=== PATIENT | male | born 1980 | race Caucasian/White ===

== ENCOUNTER 2020-05-08 07:29 | Emergency (ER) | payer SELFPAY ==
--- NOTE | ~2020-05-08 | XR_ITS ---
EXAMINATION: XR_CERV2-3V_CR DATE: 05/08/2020 09:09 INDICATION: Neck pain. TECHNIQUE: 3 views of cervical spine were obtained. COMPARISON: None. FINDINGS: There is 2 mm retrolisthesis of C5 on C6. There is 4 degrees levocurvature of cervicothorac ic spine. Vertebral body heights are normal. There is mildly decreased disc height at C4-C5 and moder ately decreased disc height at C5-C6. At C5-C6, there is moderate bilateral uncovertebral joint osteo arthritis. There is mild facet joint osteoarthritis in lower cervical spine. There is mild central ca nal stenosis at C5-C6. No prevertebral soft tissue swelling. IMPRESSION: 1. Mild cervical spondylosis. Reviewed, dictated and finalized at location A.
--- NOTE | ~2020-05-08 | XR_ITS ---
EXAMINATION: XR shoulder RT min 2V INDICATION: Right shoulder pain TECHNIQUE: Four views of the right shoulder are submitted. COMPARISON: None FINDINGS: Normal alignment. No fracture. Glenohumeral and acromioclavicular joint spaces are normal. Soft tissues are unremarkable. IMPRESSION: 1. No acute osseous abnormality. Reviewed, dictated and finalized at location A.
[2020-05-08 08:04] VITALS: BP 134/96; PULSE 87; RESP 16; TEMP 37.1; O2SAT 100
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
[2020-05-08] MEDS: DIAZEPAM 5 MG TABLET PO (09:15)
[2020-05-08 09:55] VITALS: BP 118/75; PULSE 78; RESP 16; O2SAT 100
[2020-05-08 10:41] VITALS: BP 124/68; PULSE 72; RESP 16; O2SAT 100
== END 2020-05-08 10:41 | disposition home or self-care (01) ==
PROVIDERS: Emergency Provider Emergency Medicine; PCP Family Medicine
DX: M25.512 Pain in left shoulder (principal); M54.2 Cervicalgia; M47.812 Spondylosis without myelopathy or radiculopathy, cervical region; V18.4XXA Pedal cycle driver injured in noncollision transport accident in traffic accident, initial encounter; Y93.55 Activity, bike riding
CPT/HCPCS: 72040; 73030; 99284; A9270

== ENCOUNTER 2020-08-07 15:23 | Emergency (ER) | payer SELFPAY ==
--- NOTE | ~2020-08-07 | XR_ITS ---
EXAMINATION: XR foot LT min 3V DATE: 08/07/2020 20:24 INDICATION: Left foot edema and erythema. TECHNIQUE: 4 views of left foot were obtained. COMPARISON: None. FINDINGS: Bone alignment is normal. No fracture. Joint spaces are well maintained. IMPRESSION: 1. Normal left foot. Reviewed, dictated and finalized at location A. IMPRESSION: 1. Normal left foot.
[2020-08-07 15:55] VITALS: BP 138/85; PULSE 110; RESP 20; TEMP 36.7; O2SAT 100
[2020-08-07 19:19] VITALS: BP 133/86; PULSE 103; RESP 17; O2SAT 100
[2020-08-07 20:58] LABS: Basophils Percent Auto 0.3 % (0.2-1.2); Eosinophils Absolute Auto 0.3 K/mm3 (0-0.3); Eosinophils Percent Auto 2.9 % (0-4.4); Hematocrit 50.2 % (42.0-52.0); Hemoglobin 17.3 g/dL (14.0-18.0); Immature Granulocyte Absolute 0.07 K/mm3 (0.00-0.031); Immature Granulocyte Percent A 0.6 % (0-0.5); Lymphocytes Absolute Auto 2.63 K/mm3 (0.9-3.2); Lymphocytes Percent Auto 24.2 % (18.3-44.2); Mean Corpuscular HGB Conc 34.5 g/dl (32-36); Mean Corpuscular Hemoglobin 30.4 pg (26-34); Mean Corpuscular Volume 88.1 fl (80-100); Mean Platelet Volume 8.5 fl (7.4-10.4); Monocytes Absolute Auto 0.9 K/mm3 (0.1-0.6); Monocytes Percent Auto 8.1 % (2.6-8.5); Neutrophils Percent Auto 63.9 % (45.5-73.1); Platelet Count Result 298 k/mm3 (150-375); Red Cell Distribution Width 13.1 % (11.5-14.5); White Blood Count 10.9 K/mm3 (4.5-10.0)
--- NOTE | 2020-08-07 21:14 | ED.WOUNDLAC ---
HPI - Wound/Laceration General Chief Complaint: Wound/Laceration Stated Complaint: swelling foot/insect bite Time Seen by Provider: 08/07/20 19:57 Source: patient Mode of arrival: ambulatory Limitations: no limitations History of Present Illness HPI narrative: This is a 40 year old male that presents to the ER for left foot swelling and pain. Reports he was stung by an insect yesterday around his ankle. Reports since he has had increasing swelling of the left foot. Also reports redness. He has not taken anything for his symptoms. Denies decreased ROM or numbness. Related Data Allergies Allergy/AdvReac Type Severity Reaction Status Date / Time Penicillins Allergy Intermediate RASH Verified 05/18/19 20:24 clindamycin Allergy Mild RASH Verified 05/18/19 20:24 Review of Systems Review of Systems: Narrative: CONSTITUTIONAL: Denies fever SKIN: Reports erythema and edema MUSCULOSKELETAL: Reports joint pain, and myalgia. NEUROLOGIC: Denies numbness All systems reviewed & are unremarkable except as noted in HPI and below PMFSH Surgical History Surgical History (Updated 05/08/20 @ 08:55 by Blaire Villatoro MD) Hx of decompression of ulnar nerve Social History Social History (Updated 08/07/20 @ 21:17 by Shanti Gallego PA-C) Smoking status: Never smoker Alcohol intake: current Substance use: current Substance use type: marijuana and methamphetamine Gender identity (if verbalized by the patient): Male Exam Narrative: Exam Narrative: GENERAL: Well-appearing, well-nourished, and in no acute distress. HEAD: Normocephalic, atraumatic. EYES: EOMI. CHEST: Clear to auscultation. No respiratory distress. No wheezes rales or rhonchi HEART: Regular rate and rhythm. No murmur heard. Normal peripheral pulses. EXTREMITIES: Normal range of motion. Moderate edema with mild redness to the left foot dorsal surface extending into the ankle. Normal DP pulses. Normal sensation SKIN: Warm, dry, no rash. NEURO: No focal deficits. Alert and oriented x3. PSYCH: Normal mood and affect Course Vital Signs Vital signs: Vital Signs Temperature 98.0 F 08/07/20 15:55 Pulse Rate 110 H 08/07/20 15:55 Respiratory Rate 20 08/07/20 15:55 Blood Pressure 138/85 09/14/20 15:55 Pulse Oximetry 100 08/07/20 15:55 Temperature 98.0 F 08/07/20 15:55 Pulse Rate 98 08/07/20 21:39 Respiratory Rate 17 08/07/20 21:39 Blood Pressure 132/90 08/07/20 21:39 Pulse Oximetry 99 08/07/20 21:39 MDM - Wound/Laceration MDM Narrative Medical decision making narrative: Patient presents the emergency department for left foot swelling after an insect sting yesterday. He is afebrile and nontoxic-appearing. CBC with mild leukocytosis to 10.9. No concerning elevation in inflammatory markers. D-dimer is not elevated. Left foot x-ray is without acute findings. Patient reports some improvement with antihistamines and steroid. Patient will be instructed on antihistamines at home. He will also be started on oral antibiotics in case this is bacterially infected. Patient is stable and felt appropriate further outpatient evaluation. He was given warnings to return to the ER Lab Data Attestation: I reviewed the patient's lab results. Result diagrams: 08/07/20 20:51 08/07/20 20:51 Labs: Lab Results 08/07/20 08/07/20 08/07/20 Range/Units 20:51 20:51 20:51 WBC 10.9 H (4.5-10.0) K/mm3 RBC 5.70 (4.6-6.20) M/mm3 Hgb 17.3 (14.0-18.0) g/dL Hct 50.2 (42.0-52.0) % MCV 88.1 (80-100) fl MCH 30.4 (26-34) pg MCHC 34.5 (32-36) g/dl RDW 13.1 (11.5-14.5) % Plt Count 298 (150-375) k/mm3 MPV 8.5 (7.4-10.4) fl Immature Gran % (Auto) 0.6 H (0-0.5) % Neut % (Auto) 63.9 (45.5-73.1) % Lymph % (Auto) 24.2 (18.3-44.2) % [place] % (Auto) 8.1 (2.6-8.5) % Eos % (Auto) 2.9 (0-4.4) % Baso % (Auto) 0.3 (0.2-1.2) % Lymph # (Auto) 2.63 (0.9-3.2) K/mm3 M
[2020-08-07 21:16] LABS: Anion Gap 8 mmol/L (8-16); Blood Urea Nitrogen 26 mg/dL (9-20); CRP 1.7 mg/dL (<1.0); Calcium 9.8 mg/dL (8.4-10.2); Carbon Dioxide 34 mmol/L (22-30); Chloride 95 mmol/L (98-107); Estimated CRCL calculation 69 ml/min; Estimated Glomerular Filt Rate > 60; Glucose 87 mg/dL (75-110); Potassium 4.1 mmol/L (3.4-5.0); Sodium 137 mmol/L (137-145)
[2020-08-07 21:31] LABS: Erythrocyte Sedimentation Rate 6 mm/hr (0-20)
[2020-08-07 21:39] VITALS: BP 132/90; PULSE 98; RESP 17; O2SAT 99
[2020-08-07] MEDS: methylPREDNISolone SOD SUCC 125 MG VIAL IM (21:40)
[2020-08-07] MEDS: FAMOTIDINE 20 MG TABLET PO (21:40)
[2020-08-07] MEDS: diphenhydrAMINE HCl CAP 25 MG CAPSULE PO (21:40)
[2020-08-07] MEDS: KETOROLAC 30 MG/ML VIAL (*BKC) IV PUSH (21:41)
[2020-08-07 21:46] LABS: INR 1.1; Prothrombin Time 13.6 Seconds (11.1-14.7)
[2020-08-07 21:47] LABS: Partial Thromboplastin Time 29.7 SECONDS (22.3-36.8)
[2020-08-07 22:11] LABS: D Dimer 0.43 ug/mL (<0.48)
== END 2020-08-07 22:44 | disposition home or self-care (01) ==
PROVIDERS: Physician Assistant; Emergency Provider Emergency Medicine
DX: L03.116 Cellulitis of left lower limb (principal); T63.481A Toxic effect of venom of other arthropod, accidental (unintentional), initial encounter
CPT/HCPCS: 36415; 73630; 80048; 85025; 85380; 85610; 85652; 85730; 86140; 96372; 96374; 99284; A9270; J1885; J2930

== ENCOUNTER 2020-08-29 13:38 | Emergency (ER) | payer SELFPAY ==
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
[2020-08-29 13:53] VITALS: BP 124/99; PULSE 115; RESP 18; TEMP 37.1; O2SAT 99
== END 2020-08-29 14:35 | disposition home or self-care (01) ==
PROVIDERS: Emergency Provider Emergency Medicine
DX: S63.501A Unspecified sprain of right wrist, initial encounter (principal); V89.2XXA Person injured in unspecified motor-vehicle accident, traffic, initial encounter
CPT/HCPCS: 73110; 73140; 99283

== ENCOUNTER 2020-09-06 16:04 | Emergency (ER) | payer OTHER, SELFPAY ==
--- NOTE | ~2020-09-06 | CT_ITS ---
EXAMINATION: CT brain wo con EXAM DATE: 09/06/2020 17:08 INDICATION: Headache, neck pain, laceration above left eye. TECHNIQUE: Spiral CT of the head was performed without contrast. Axial, coronal and sagittal images were reviewed. The dose-length product (DLP) for this examination was 605.33 mGy-cm. The exposure w as tailored according to patient size, and iterative reconstruction (ASIR) was used as additional dos e reduction technique. Comparison is made to prior examination from 05/18/19. FINDINGS: There is no acute intraparenchymal hemorrhage. No evidence of intraparenchymal brain mass lesion. No evidence of acute infarction. There is no mass effect or midline shift. The ventricles are normal in size. There are no extra-axial collections. There are no acute calvarial fractures. T he orbits are unremarkable. Left brow soft tissue contusion and laceration. The visualized sinuses a nd mastoid air cells are well aerated. IMPRESSION: 1. No acute intracranial findings. 2. Left brow contusion, laceration. Reviewed, dictated and finalized at location A.
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
[2020-09-06 16:04] VITALS: BP 156/79; PULSE 125; RESP 20; TEMP 37; O2SAT 99
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
== END 2020-09-06 18:23 ==
PROVIDERS: Emergency Provider Emergency Medicine
DX: S00.12XA Contusion of left eyelid and periocular area, initial encounter (principal); S00.81XA Abrasion of other part of head, initial encounter; Y35.813A Legal intervention involving manhandling, suspect injured, initial encounter
CPT/HCPCS: 70450; 70486; 72125; 99284; L0140

== ENCOUNTER 2021-09-14 10:47 | Emergency (ER) | payer SELFPAY ==
[2021-09-14 10:53] VITALS: BP 127/92; PULSE 97; RESP 14; TEMP 36.6; O2SAT 98
[2021-09-14] MEDS: LIDOCAINE HCL 1% LOCAL INJ 20 ML VIAL 4 ML INFILTRATE (11:08)
--- NOTE | 2021-09-14 11:26 | ED.GENADULT ---
HPI - General Adult General Chief complaint: Wound/Laceration Stated complaint: cut finger Source: patient Mode of arrival: ambulatory Limitations: no limitations History of Present Illness HPI narrative: Marko is a 41M with no significant PMH that presented to the ED with a laceration on his right index finger 9 hours ago. He was throwing a beer can like a football and cut it. He has no other injuries or concerns. Related Data Home Medications Medication Instructions Recorded Confirmed No Home Medications 08/29/20 09/14/21 Allergies Allergy/AdvReac Type Severity Reaction Status Date / Time Penicillins Allergy Intermediate RASH Verified 09/14/21 11:00 clindamycin Allergy Mild RASH Verified 09/14/21 11:00 Review of Systems Constitutional: Constitutional: Reports no additional constitutional complaints Eyes: Eyes: Reports no additional eye complaints ENT: Reports system reviewed and no additional complaints, except as documented Cardiovascular: Cardiovascular: Reports no additional cardiovascular complaints Respiratory: Respiratory: Reports no additional respiratory complaints Gastrointestinal: Gastrointestinal: Reports no additional gastrointestinal complaints Genitourinary: Genitourinary: Reports no additional male genitourinary complaints Musculoskeletal: Musculoskeletal: Reports no additional musculoskeletal complaints Integumentary/Breasts: Skin/Breast: Reports as per HPI Neurologic: Reports system reviewed and no additional complaints, except as documented Psychiatric: Psychiatric: Reports no additional psychiatric complaints Endocrine: Endocrine: Reports no additional endocrine complaints Hematologic/Lymphatic: Hematologic/Lymphatic: Reports no additional hematologic/lymphatic complaints Allergic/Immunologic: Allergic/Immunologic: Reports no additional allergic/immunologic complaints [facility] Surgical History Surgical History Hx of decompression of ulnar nerve Social History Social History Smoking status: Never smoker Alcohol intake: current Substance use: current Substance use type: marijuana and methamphetamine Gender identity (if verbalized by the patient): Male Exam Const: General: no acute distress and alert Orientation/consciousness: patient oriented x3 Limitations: No altered mental status HENMT: Head: normal to inspection Other: normocephalic, atrauamtic Eyes: Conjunctivae: conjunctivae normal Pupils: Equal, round and reactive pupils present Neck: Neck: normal visual inspection Chest: Chest palpation & inspection: normal inspection of the chest Resp: Effort & Inspection: normal respiratory effort, not labored, no retractions and not tachypneic Cardio: Rate: regular rate Skin: Other: the pad of the index finger on the right hand had a linear 1.5cm shallow laceration that was hemostatic Neuro: General: patient oriented x3 and moves all extremities Course Vital Signs Vital signs: Vital Signs Temperature 97.9 F 09/14/21 10:53 Pulse Rate 97 09/14/21 10:53 Respiratory Rate 14 09/14/21 10:53 Blood Pressure 127/92 H 09/14/21 10:53 Pulse Oximetry 98 09/14/21 10:53 Temperature 97.9 F 09/14/21 10:53 Pulse Rate 97 09/14/21 10:53 Respiratory Rate 14 09/14/21 10:53 Blood Pressure 127/92 H 09/14/21 10:53 Pulse Oximetry 98 09/14/21 10:53 Procedures Laceration Laceration 1: Date: 09/14/21 Site: other (R index finger) Size (cm): 1.5 Description: linear Depth: simple, single layer Local Anesthetic: lidocaine 1% Pre-repair: wound explored and irrigated ====== Skin Level ====== Skin layer closed with: nylon Size (cm): 4-0 Number of sutures: 5 ====== Subcutaneous Layer ====== ====== Muscle Layer ====== ====== Tendon Layer =====
== END 2021-09-14 11:32 | disposition home or self-care (01) ==
PROVIDERS: Emergency Provider Family Medicine
DX: S61.210A Laceration without foreign body of right index finger without damage to nail, initial encounter (principal); W45.8XXA Other foreign body or object entering through skin, initial encounter
CPT/HCPCS: 12001; 99282

== ENCOUNTER 2022-07-29 20:07 | Emergency (ER) | payer SELFPAY ==
[2022-07-29 20:09] VITALS: BP 144/91; PULSE 88; RESP 18; TEMP 36.3; O2SAT 99
--- NOTE | 2022-07-29 20:17 | ED.GENADULT ---
HPI - General Adult General Chief complaint: Skin/Abscess/Foreign Body Stated complaint: skin infection abdomen History of Present Illness HPI narrative: Alex presented to the ED with 6 days of an enlarging boil and surrounding erythema that is getting worse. No fevers, chills, N/v or SOB reported. He is allergic to clindamycin and penicillin. Related Data Allergies Allergy/AdvReac Type Severity Reaction Status Date / Time Penicillins Allergy Intermediate RASH Verified 07/29/22 20:15 clindamycin Allergy Mild RASH Verified 07/29/22 20:15 Review of Systems Review of Systems: All systems reviewed & are unremarkable except as noted in HPI and below PMFSH Surgical History Surgical History Hx of decompression of ulnar nerve Social History Social History Smoking status: Never smoker Alcohol intake: current Substance use: current Substance use type: marijuana and methamphetamine Gender identity (if verbalized by the patient): Male Exam Const: General: healthy appearing and no acute distress Nutritional Appearance: well nourished Orientation/consciousness: patient oriented x3 HENMT: Head: normal to inspection Ears: external ears normal General nose exam: Normal external nose present Eyes: Conjunctivae: conjunctivae normal Pupils: Equal, round and reactive pupils present Neck: Neck: normal visual inspection Chest: Chest palpation & inspection: normal inspection of the chest Resp: Effort & Inspection: normal respiratory effort Cardio: Rate: regular rate Skin: Other: On the lower abdomen there was a several cm round are of erythema with a boil and fluctuance Neuro: General: patient oriented x3 and moves all extremities Extrem: General: normal to inspection Psych: Mental Status: mental status grossly normal Course Vital Signs Vital signs: Vital Signs Temperature 97.3 F L 07/29/22 20:09 Pulse Rate 88 07/29/22 20:09 Respiratory Rate 18 07/29/22 20:09 Blood Pressure 144/91 H 07/29/22 20:09 Pulse Oximetry 99 07/29/22 20:09 Oxygen Delivery Room Air 07/29/22 20:09 Temperature 97.3 F L 07/29/22 20:09 Pulse Rate 88 07/29/22 20:09 Respiratory Rate 18 07/29/22 20:09 Blood Pressure 144/91 H 07/29/22 20:09 Pulse Oximetry 99 07/29/22 20:09 Oxygen Delivery Room Air 07/29/22 20:09 Procedures Abscess I/D abdomen: Date of Incision: 07/29/22 Time of Incision: 20:30 Sedation/analgesia: none Local Anesthetic: lidocaine 1% and with epi Amount of anesthesia used (mL): 1 Technique: incised with #11 blade Amount of fluid expressed (mL): 1 I&D Results: Pus Abcess I&D Additional Comments: Tolerated procedure well Medical Decision Making Vital Signs Vital Signs: Vital Signs Temperature 97.3 F L 07/29/22 20:09 Pulse Rate 88 07/29/22 20:09 Respiratory Rate 18 07/29/22 20:09 Blood Pressure 144/91 H 07/29/22 20:09 Pulse Oximetry 99 07/29/22 20:09 Oxygen Delivery Room Air 07/29/22 20:09 Temperature 97.3 F L 07/29/22 20:09 Pulse Rate 88 07/29/22 20:09 Respiratory Rate 18 07/29/22 20:09 Blood Pressure 144/91 H 07/29/22 20:09 Pulse Oximetry 99 07/29/22 20:09 Oxygen Delivery Room Air 07/29/22 20:09 Discharge Plan Discharge Clinical Impression: Cellulitis, Abscess Patient Disposition: Home, Self-Care Condition: Stable Instructions: Abscess (ED) Prescriptions: New sulfamethoxazole-trimethoprim [Bactrim DS] 800-160 mg tablet 1 tablet PO Q12H Qty: 10 0RF Follow-up/Referrals: UNKNOWN,DOCTOR [Primary Care Provider] -
[2022-07-29] MEDS: SULFAMETHOXAZOLE/TRIMETHOPRIM 800/160 MG DS TABLET 2 TAB PO (20:36)
[2022-07-29] MEDS: LIDO 1%/EPINEPHRINE 1:100,000 20 ML VIAL INFILTRATE (20:38)
== END 2022-07-29 20:45 | disposition home or self-care (01) ==
PROVIDERS: Emergency Provider Family Medicine
DX: L02.91 Cutaneous abscess, unspecified (principal)
CPT/HCPCS: 10060; 99283; A9270

== ENCOUNTER 2022-11-09 11:40 | Emergency (ER) | payer SELFPAY ==
[2022-11-09 11:41] VITALS: BP 135/84; PULSE 78; RESP 16; TEMP 36.4; O2SAT 100
--- NOTE | 2022-11-09 13:01 | ED.SKABFB ---
HPI - Skin/Abscess/Foreign Bdy General Chief complaint: Skin/Abscess/Foreign Body Stated complaint: abscess on abdomen Time Seen by Provider: 11/09/22 13:00 History of Present Illness HPI narrative: Patient is a 42-year-old male presenting with skin infection. Patient states that he recently got a new climbing belt which has been riding high and rubbing on his abdomen. States that he noticed a little red bump several days ago and he picked out it and since then it has grown. States that there is another area of redness just to the left of the first one. States he is concerned for abscesses. He denies fevers, headache, chest pain, shortness of breath, abdominal pain, nausea or vomiting, diarrhea. Related Data Allergies Allergy/AdvReac Type Severity Reaction Status Date / Time Penicillins Allergy Intermediate RASH Verified 11/09/22 11:40 clindamycin Allergy Mild RASH Verified 11/09/22 11:40 Review of Systems Review of Systems: All systems reviewed & are unremarkable except as noted in HPI and below PMFSH Surgical History Surgical History Hx of decompression of ulnar nerve Social History Social History Smoking status: Never smoker Alcohol intake: current Substance use: current Substance use type: marijuana and methamphetamine Gender identity (if verbalized by the patient): Male Exam Narrative: GENERAL: Well-appearing, well-nourished, and in no acute distress. HEAD: Normocephalic, atraumatic. EYES: PERRLA and EOMI. ENT: Nares clear, no rhinorrhea or epistaxis. Mucous membranes moist. NECK: Supple. CHEST: Clear to auscultation. No respiratory distress. HEART: Regular rate and rhythm. No murmur heard. Normal peripheral pulses. ABDOMEN: Soft, nontender, nondistended, 2 areas of erythema with evidence of superficial purulent collection, consistent with folliculitis, areas are indurated but there is no surrounding cellulitis, no deep fluctuance EXTREMITIES: Normal range of motion. No edema. SKIN: Warm, dry, no rash. NEURO: No focal deficits. Alert and oriented x3. PSYCH: Normal mood and affect. Course Vital Signs Vital signs: Vital Signs Temperature 97.6 F 11/09/22 11:41 Pulse Rate 78 11/09/22 11:41 Respiratory Rate 16 11/09/22 11:41 Blood Pressure 135/84 11/09/22 11:41 Pulse Oximetry 100 11/09/22 11:41 Oxygen Delivery Room Air 11/09/22 11:41 Temperature 97.6 F 11/09/22 11:41 Pulse Rate 78 11/09/22 11:41 Respiratory Rate 16 11/09/22 11:41 Blood Pressure 135/84 11/09/22 11:41 Pulse Oximetry 100 11/09/22 11:41 Oxygen Delivery Room Air 11/09/22 11:41 Procedures Abscess I/D abdomen: Date of Incision: 11/09/22 Local Anesthetic: lidocaine 1% Amount of anesthesia used (mL): 8 Technique: incised with #11 blade Amount of fluid expressed (mL): 5 Irrigation: Yes Packing used?: none I&D Results: Pus and Blood Abcess I&D Additional Comments: two small abscesses incised and drained on anterior abdomen, moderate amount of purulent material drained, tolerated well without complications. MDM - Skin/Abscess/Foreign Bdy MDM Narrative Medical decision making narrative: Patient is a 42-year-old male presenting with 2 superficial abscesses on his anterior abdomen. Vitals within normal limits. Patient is well-appearing and in no acute distress. Warm compresses applied with some drainage of being superficial purulence. Suspect there is deeper fluid collection at this time so I&D was performed on both abscesses with drainage of moderate amount of purulence. We will cover the patient with Bactrim. Advised that he continue to apply warm compresses. Advise primary care follow-up. Appropriate return precautions were given regarding worsening of symptoms, development of fever or systemic symptoms, or other concer
== END 2022-11-09 15:19 | disposition home or self-care (01) ==
PROVIDERS: Emergency Provider Emergency Medicine
DX: L02.211 Cutaneous abscess of abdominal wall (principal)
CPT/HCPCS: 10060; 99283

== ENCOUNTER 2022-11-11 12:52 | Emergency (ER) | payer SELFPAY ==
[2022-11-11 13:06] VITALS: PULSE 88; RESP 18; TEMP 36.7; O2SAT 98
--- NOTE | 2022-11-11 13:10 | ED.SKABFB ---
HPI - Skin/Abscess/Foreign Bdy General Chief complaint: Skin/Abscess/Foreign Body Stated complaint: allergic reaction? Time Seen by Provider: 11/11/22 12:59 Source: patient and RN notes reviewed Mode of arrival: ambulatory Limitations: no limitations History of Present Illness HPI narrative: patient had 2 abscesses on his abdomen lacerated at another facility. He then was started on a sulfa antibiotic and then last evening he began having some itching around his rectum up to his scrotum. complaint: rash Onset (ago): day(s) (1) Location: genitals Severity: moderate Quality: burning and pruritic Pain Consistency: constant Relieving factors: none Exacerbating factors: none Context: recent antibiotic Associated symptoms: denies other symptoms Treatments prior to arrival: none Related Data Allergies Allergy/AdvReac Type Severity Reaction Status Date / Time Penicillins Allergy Intermediate RASH Verified 11/11/22 13:17 clindamycin Allergy Mild RASH Verified 11/11/22 13:17 Review of Systems Review of Systems: All systems reviewed & are unremarkable except as noted in HPI and below PMFSH Surgical History Surgical History Hx of decompression of ulnar nerve Social History Social History Smoking status: Never smoker Alcohol intake: current Substance use: current Substance use type: marijuana and methamphetamine Gender identity (if verbalized by the patient): Male Exam Const: General: healthy appearing, no acute distress and alert Nutritional Appearance: well nourished Orientation/consciousness: patient oriented x3 Limitations: no limitations HENMT: Head: normal to inspection Ears: external ears normal Face/Nose/Sinus: Normal external nose present Face and sinus: normal facial exam Mouth: Yes moist mucous membranes Eyes: Conjunctivae: conjunctivae normal Pupils: Equal, round and reactive pupils present EOM: EOMs intact bilaterally Neck: Neck: normal visual inspection Resp: Effort & Inspection: normal respiratory effort Auscultation: clear to auscultation bilaterally Cardio: Rate: regular rate Rhythm: regular rhythm GI: Auscultation: normal bowel sounds Back/Spine/Pelvis: Cervical Spine: cervical ROM normal Thoracic/Lumbar Spine: thoraco-lumbar ROM normal Skin: General skin exam: normal color Rashes: rashes noted yesenia-anal arrangement confluent, borders sharp, color, surface blanching and erythematous and tender Neuro: General: patient oriented x3, moves all extremities, no focal motor deficits and CN's II-XI intact bilaterally Speech: normal speech Gait exam (Neuro): Normal gait present Extrem: General: normal to inspection and no clubbing, cyanosis or edema Psych: Mental Status: mental status grossly normal Affect: normal affect Attitude: cooperative Course Vital Signs Vital signs: Vital Signs Temperature 36.7 C 11/11/22 13:06 Pulse Rate 88 11/11/22 13:06 Respiratory Rate 18 11/11/22 13:06 Pulse Oximetry 98 11/11/22 13:06 Oxygen Delivery Room Air 11/11/22 13:06 Temperature 36.7 C 11/11/22 13:06 Pulse Rate 88 11/11/22 13:06 Respiratory Rate 18 11/11/22 13:06 Pulse Oximetry 98 11/11/22 13:06 Oxygen Delivery Room Air 11/11/22 13:06 MDM - Skin/Abscess/Foreign Bdy Differential Diagnosis Differential diagnosis: Likely urticaria, allergic reaction to drug and other ( Candidiasis) Discharge Plan Discharge Clinical Impression: Candidiasis Patient Disposition: Home, Self-Care Condition: Stable Instructions: Skin Yeast Infection (ED) Additional Instructions: can continue your current antibiotic and if your rash gets worse then you should stop the sulfa antibiotic. Use the nystatin cream 3 times a day. Other option is to discontinue your current antibiotic and just use the nystatin cream. Prescriptions: New nystatin 100,00
--- NOTE | 2022-11-11 13:29 | PC.NURSE ---
Pt has rash from rectum to scrotum.
== END 2022-11-11 13:52 | disposition home or self-care (01) ==
PROVIDERS: Emergency Provider Emergency Medicine
DX: B37.2 Candidiasis of skin and nail (principal)
CPT/HCPCS: 99283

== ENCOUNTER 2023-04-27 17:50 | Emergency (ER) | payer SELFPAY | END 2023-04-27 18:05 | disposition left against medical advice (07) | LOC: CHSED 04-28 13:55 | PROVIDERS: Emergency Provider Emergency Medicine; PCP Family Medicine | DX: Z53.21 Procedure and treatment not carried out due to patient leaving prior to being seen by health care provider (principal) | CPT/HCPCS: 99199 ==

== ENCOUNTER 2025-02-02 18:51 | Emergency (ER) | payer OTHER, SELFPAY ==
--- OUTSIDE RECORDS SUMMARY | 2025-02-02 18:52 | XMS_ITS | Continuity of Care Document ---
Author Organization [facility] Address [address] [place] [address] [address] [place] [address] Phone Care Team Providers Care Supervisor Cellars Name Role Phone Radames COOL, OTR/L, Jorden VARGAS Unavailable Micaela vailable Procedures Procedure Date ORTHOTIC FITTING OT EVALUATION THERAPEUTIC EXERCISES ORTHOTIC FITTING Non-compressive stockinette per foot Jan Static Clamshell Splint Advance Directives Directive Yes / No Effective Date File Name No Information Encounters Encounter Description Practice Location Reason(s) For Visit Diagnoses Date Provider Providers Copied on Encounter [facility], [address] [address], [place], [place], [id number], tel:[phone] [place] No Information 6 Radames Leonardo. [address] [facility], [facility] [address], [place], [facility], . tel:[phone] Referring Provider: Leif Mansfield, [address] [facility] [address], [place], [address]. tel:[phone] [facility], [address] [address], [place], [place], [id number], tel:[phone] [place] Pain in left handOther specified soft tissue disordersMuscle weakness (generalized)Uns pecified sprain of left wrist, initial encounterOther specified joint disorders, left wrist 6 Radames Leonardo. [address] [facility], [facility] [address], [place], [place], [facility], . tel:[phone] Referring Provider: Lionel Hirsch, [address] [facility] [address], [place], [address]. tel:[phone] Family History Family Member Type Diagnosis Age At Onset No Information Payers Payer name Insurance type Covered libertarian ID Authoriza tion(s) No Information Social History Type Description Quantity Date Captured Comments Sex Male Smoking Status No Information Chief Complaint And Reason For Visit No Information Reason For Referral Reason For Referral No Information History Of Present Illness Encounter Date Complaint History Of Prese nt Illness No Information Functional Status Date Functional Assessmen t No Information Instructions Date Instruction Additional Infor mation No Information Assessments Type Assessment Date No Information Patient Care Teams Name Effective Dates (start - stop) Status Members No Information
[2025-02-02 18:53] VITALS: BP 132/79; PULSE 92; RESP 18; TEMP 38.1; O2SAT 96
--- OUTSIDE RECORDS SUMMARY | 2025-02-02 18:53 | XMS_ITS | Data Portability ---
Author Organization [facility] YANELYKayden Maravilla Address [address] [facility] [place] [address] Assessment Encounter Date Assessment Date Assessment LastModified by Organization Details LastModified Time 09/27/2024 09/27/2024 Pt's case was discussed w/resident. Documentation was reviewed, and I agree w/resident's note. Dr. Waldron Not available 10/01/2024 14:22:46 Plan of Treatment Reminders Order Date Submit Date Provider Last Modified By Organization Details Last Modified Time Details Appointments None recorded. Lab urinalysis complete, reflex culture 2023 [facility] [address], [address], [place], [address], 4 06:20:46 RPR (rapid plasma reagin), serum 2023 024 [facility], [facility] [address], [place], [address], 4 06:20:49 HIV 1 + 2, meaningful use set 2023 [place] [facility], [facility] [address], [address], [place], [address], 4 06:20:50 chlamydia trachomati s + neisseria gonorrhoea e + trichomona s vaginalis rRNA panel, TYLER+probe 2023 024 [facility] K[facility], [address] [place] [address] [address], [address], [place], [address], 4 06:20:44 Hepatitis C IgG Ab, qual, serum 2023 024 [facility], [address] [address], [address], [place], [address], 4 06:20:43 HBsAg (hepatitis B surface Ag), EIA, serum 2023 024 [facility], [address] [place] [address], [address], [place], [address], 4 06:20:48 chlamydia trachomati s + neisseria gonorrhoea e rRNA panel, TYLER+probe, nasopharyn x 2023 024 [facility], [address] [place] [address], [address], [place], [address], 4 06:20:45 RPR (rapid plasma reagin), serum 2023 024 [facility], [address] [place] [address], [address], [place], [address], 4 06:07:44 chlamydia trachomati s + neisseria gonorrhoea e rRNA panel, TYLER+probe, nasopharyn x 2023 024 [facility], [address] [place] [address], [address], [place], [address], 4 06:07:40 chlamydia trachomati s + neisseria gonorrhoea e + trichomona s vaginalis DNA panel, TYLER+probe, urine 2023 024 [facility], [address] [place] [address], [address], [place], [address], 4 15:10:14 lipid panel, serum 2023 024 [place] [facility], [facility] [address], [address], [place], [address], 4 06:07:41 CBC w/ auto diff 2023 024 [facility], [facility] [place], [address], [place], [address], 4 06:07:43 CMP, serum or plasma 2023 024 [facility], [facility] [address], [address], [place], [address], 4 06:07:42 TSH + free T4, serum 2023 024 [facility], [address] [place] [address], [address], [place], [address], 4 06:07:41 vitamin D, 25-hydroxy , total, serum 2023 024 [facility], [facility] [place], [address], [place], [address], 4 06:07:44 vitamin B12, serum 2023 024 [facility], [address] [place] [address], [address], [place], [address], 4 06:07:43 Referral None recorded. Procedures None recorded. Surgeries None recorded. Imaging XR, elbow, 3 or more view - left elbow x ray 2023 024 [facility], [address] [place], [address], 4 10:24:42 Medication Orders metronidaz ole 500 mg tablet 2023 024 [id number], [address], [place], [place], [id number], 16:03:11 meloxicam 7.5 mg tablet 2023 024 [id number], [address], [place], [place], [id number], 15:04:25 Patient TargetsNo targets recorded. Patient Instructions Encounter Date Encounter Id Patient Instructions Last Modified By Organization Details Last Modified Time 03/25/2024 [id number] A healthy lifestyle: care instructions [email or web address] Not available 04/12/2024 10:46:35 golfer's elbow: exercises [email or web address] Not available 03/25/2024 17:02:12 golfer's elbow: care instructions [email or web address] Not available 03/25/2024 17:02:12 Plan of care has been discussed with patient including expected therapeutic benefits and potential side effects of prescribed medication and treatments. Patient verbalizes understanding and is in agreement with the plan of care. Patient was instructed to keep all scheduled appointments and contact the clinic for any additional problems. [email or web address] Not available 03/25/2024 17:07:48 09/27/2024 [id number] painful urinatio n (dysuria): care instructions [email or web address] Not available 09/27/2024 15:17:39 Reason for Referral None Reported. Results Created Date Observation Date Name Description Value Unit Range Abnormal Flag Note LastModifiedBy Organization Detail LastModifiedTime 03/25/2003/29/2024 CT/GC TYLER, PHARY NGEAL C. trachomatis, TYLER, pharyn Negati ve negati ve Not Available [facility] ([facility]) [address] [facility], [place], [address], 03/29/2024 06:07:40 03/25/2003/29/2024 CT/GC TYLER, PHARY NGEAL N. gonorrhoeae, TYLER, pharyn Negati ve negati ve Not Available [facility] ([facility]) [address] [place], [address], 03/29/2024 06:07:40 03/25/20 24 03/26/2024 TSH+F REE T4 TSH 2.210 uIU/m L 0.450- 4.500 Not Available [facility] ([facility]) [address] [place], [address], 03/29/2024 06:07:41 03/25/20 24 03/26/2024 TSH+F REE T4 T4,free(dire ct) 1.17 NG/dL 0.82-1 .77 Not Available [facility] ([facility]) [address] [place], [address], 03/29/2024 06:07:41 03/25/20 24 03/26/2024 LIPID PANEL cholesterol, total 185 mg/dL 100-19 9 Not Available [facility] ([facility]) [address] [place], [address], 03/29/2024 06:07:41 03/25/20 24 03/26/2024 LIPID PANEL triglyceride s 399 mg/dL 0-149 above high normal Not Available [facility] ([facility]) [address] [place], [address], 03/29/2024 06:07:41 03/25/20 24 03/26/2024 LIPID PANEL HDL cholesterol 33 mg/dL >39 below low normal Not Available [facility] ([facility]) [address] [place], [address], 03/29/2024 06:07:41 03/25/20 24 03/26/2024 LIPID PANEL VLDL cholesterol be 65 mg/dL 5-40 above high normal Not Available [facility] ([facility]) [address] [place], [address], 03/29/2024 06:07:41 03/25/20 24 03/26/2024 LIPID PANEL LDL chol calc ([facility]) 87 mg/dL 0-99 Not Available [facility] [address] [place], [address], 03/29/2024 06:07:41 03/25/20 24 03/26/2024 COMP. METAB OLIC PANEL (14) glucose 79 mg/dL 70-99 Not Available [facility] ([facility]) [address] [place], [address], 03/29/2024 06:07:42 03/25/20 24 03/26/2024 COMP. METAB OLIC PANEL (14) BUN 21 mg/dL 6-24 Not Available [facility] ([facility]) [address] [place], [address], 03/29/2024 06:07:42 03/25/20 24 03/26/2024 COMP. METAB OLIC PANEL (14) creatinine 1.15 mg/dL 0.76-1 .27 Not Available [facility] ([facility]) [address] [place], [address], 03/29/2024 06:07:42 03/25/20 24 03/26/2024 COMP. METAB OLIC PANEL (14) eGFR 81 mL/mi n/1.7 3 >59 Not Available [facility] ([facility]) [address] [place], [address], 03/29/2024 06:07:42 03/25/20 24 03/26/2024 COMP. METAB OLIC PANEL (14) BUN/creatini ne ratio 18 9-20 Not Available [facility] ([facility]) [address] [place], [address], 03/29/2024 06:07:42 03/25/20 24 03/26/2024 COMP. METAB OLIC PANEL (14) sodium 141 mmol/ L 134-14 4 Not Available [facility] ([facility]) [address] [place], [address], 03/29/2024 06:07:42 03/25/20 24 03/26/2024 COMP. METAB OLIC PANEL (14) potassium 4.4 mmol/ L 3.5-5. 2 Not Available [facility] ([facility]) [address] [place], [address], 03/29/2024 06:07:42 03/25/20 24 03/26/2024 COMP. METAB OLIC PANEL (14) chloride 105 mmol/ L 96-106 Not Available [facility] ([facility]) [address] [place], [address], 03/29/2024 06:07:42 03/25/20 24 03/26/2024 COMP. METAB OLIC PANEL (14) carbon dioxide, total 21 mmol/ L 20-29 Not Available [facility] ([facility]) [address] [place], [address], 03/29/2024 06:07:42 03/25/20 24 03/26/2024 COMP. METAB OLIC PANEL (14) calcium 9.5 mg/dL 8.7-10 .2 Not Available [facility] ([facility]) [address] [place], [address], 03/29/2024 06:07:42 03/25/20 24 03/26/2024 COMP. METAB OLIC PANEL (14) protein, total 6.8 g/dL 6.0-8. 5 Not Available [facility] ([facility]) [address] [place], [address], 03/29/2024 06:07:42 03/25/20 24 03/26/2024 COMP. METAB OLIC PANEL (14) albumin 4.3 g/dL 4.1-5. 1 Not Available [facility] ([facility]) [address] [place], [address], 03/29/2024 06:07:42 03/25/20 24 03/26/2024 COMP. METAB OLIC PANEL (14) globulin, total 2.5 g/dL 1.5-4. 5 Not Available [facility] ([facility]) [address] [facility], [place], [address], 03/29/2024 06:07:42 03/25/20 24 03/26/2024 COMP. METAB OLIC PANEL (14) A/G ratio 1.7 1.2-2. 2 Not Available [facility] ([facility]) [address] [facility], [place], [address], 03/29/2024 06:07:42 03/25/20 24 03/26/2024 COMP. METAB OLIC PANEL (14) bilirubin, total 0.2 mg/dL 0.0-1. 2 Not Available [facility] ([facility]) [address] [facility], [place], [address], 03/29/2024 06:07:42 03/25/20 24 03/26/2024 COMP. METAB OLIC PANEL (14) alkaline phosphatase 88 IU/L 44-121 Not Available [facility]) [address] [facility], [place], [address], 03/29/2024 06:07:42 03/25/20 24 03/26/2024 COMP. METAB OLIC PANEL (14) AST (SGOT) 23 IU/L 0-40 Not Available [facility] ([facility]) [address] [facility], [place], [address], 03/29/2024 06:07:42 03/25/20 24 03/26/2024 COMP. METAB OLIC PANEL (14) ALT (SGPT) 22 IU/L 0-44 Not Available [facility] ([facility]) [address] [facility], [place], [address], 03/29/2024 06:07:42 03/25/20 24 03/26/2024 VITAM IN B12 vitamin B12 271 pg/mL 232-12 45 Not Available [facility] ([facility]) [address] [facility], [place], [address], 03/29/2024 06:07:42 03/25/20 24 03/26/2024 CBC WITH DIFFE RENTI AL/PL ATELE T WBC 8.1 x10e3 /uL 3.4-10 .8 Not Available [facility] ([facility]) [address] [facility], [place], [address], 03/29/2024 06:07:43 03/25/20 24 03/26/2024 CBC WITH DIFFE RENTI AL/PL ATELE T RBC 5.14 x10e6 /uL 4.14-5 .80 Not Available [facility] ([facility]) [address] [facility], [place], [address], 03/29/2024 06:07:43 03/25/20 24 03/26/2024 CBC WITH DIFFE RENTI AL/PL ATELE T hemoglobin 15.4 g/dL 13.0-1 7.7 Not Available [facility] ([facility]) [address] [facility], [place], [address], 03/29/2024 06:07:43 03/25/20 24 03/26/2024 CBC WITH DIFFE RENTI AL/PL ATELE T hematocrit 45.8 % 37.5-5 1.0 Not Available [facility] ([facility]) [address] [place], [address], 03/29/2024 06:07:43 03/25/2003/26/2024 CBC WITH DIFFE RENTI AL/PL ATELE T MCV 89 fL 79-97 Not Available [facility] ([facility]) [address] [facility], [place], [address], 03/29/2024 06:07:43 03/25/20 24 03/26/2024 CBC WITH DIFFE RENTI AL/PL ATELE T MCH 30.0 pg 26.6-3 3.0 Not Available [facility] ([facility]) [address] [facility], [place], [address], 03/29/2024 06:07:43 03/25/20 24 03/26/2024 CBC WITH DIFFE RENTI AL/PL ATELE T MCHC 33.6 g/dL 31.5-3 5.7 Not Available [facility] ([facility]) [address] [facility], [place], [address], 03/29/2024 06:07:43 03/25/20 24 03/26/2024 CBC WITH DIFFE RENTI AL/PL ATELE T RDW 13.2 % 11.6-1 5.4 Not Available [facility] ([facility]) [address] [facility], [place], [address], 03/29/2024 06:07:43 03/25/20 24 03/26/2024 CBC WITH DIFFE RENTI AL/PL ATELE T platelets 272 x10e3 /uL 150-45 0 Not Available [facility] ([facility]) [address] [facility], [place], [address], 03/29/2024 06:07:43 03/25/20 24 03/26/2024 CBC WITH DIFFE RENTI AL/PL ATELE T neutrophils 48 % notest ab. Not Available [facility] ([facility]) [address] [facility], [place], [address], 03/29/2024 06:07:43 03/25/20 24 03/26/2024 CBC WITH DIFFE RENTI AL/PL ATELE T lymphs 38 % notest ab. Not Available [facility] ([facility]) [address] [facility], [place], [address], 03/29/2024 06:07:43 03/25/20 24 03/26/2024 CBC WITH DIFFE RENTI AL/PL ATELE T monocytes 11 % notest ab. Not Available [facility] ([facility]) [address] [facility], [place], [address], 03/29/2024 06:07:43 03/25/20 24 03/26/2024 CBC WITH DIFFE RENTI AL/PL ATELE T eos 2 % notest ab. Not Available [facility] ([facility]) [address] [facility], [place], [address], 03/29/2024 06:07:43 03/25/20 24 03/26/2024 CBC WITH DIFFE RENTI AL/PL ATELE T basos 1 % notest ab. Not Available [facility] ([facility]) [address] [facility], [place], [address], 03/29/2024 06:07:43 03/25/20 24 03/26/2024 CBC WITH DIFFE RENTI AL/PL ATELE T neutrophils (absolute) 3.9 x10e3 /uL 1.4-7. 0 Not Available [facility] ([facility]) [address] [facility], [place], [address], 03/29/2024 06:07:43 03/25/20 24 03/26/2024 CBC WITH DIFFE RENTI AL/PL ATELE T lymphs (absolute) 3.0 x10e3 /uL 0.7-3. 1 Not Available [facility] ([facility]) [address] [facility], [place], [address], 03/29/2024 06:07:43 03/25/20 24 03/26/2024 CBC WITH DIFFE RENTI AL/PL ATELE T monocytes(ab solute) 0.9 x10e3 /uL 0.1-0. 9 Not Available [facility] ([facility]) [address] [facility], [place], [address], 03/29/2024 06:07:43 03/25/20 24 03/26/2024 CBC WITH DIFFE RENTI AL/PL ATELE T eos (absolute) 0.2 x10e3 /uL 0.0-0. 4 Not Available [facility] ([facility]) [address] [facility], [place], [address], 03/29/2024 06:07:43 03/25/20 24 03/26/2024 CBC WITH DIFFE RENTI AL/PL ATELE T baso (absolute) 0.1 x10e3 /uL 0.0-0. 2 Not Available [facility] ([facility]) [address] [facility], [place], [address], 03/29/2024 06:07:43 03/25/20 24 03/26/2024 CBC WITH DIFFE RENTI AL/PL ATELE T immature granulocytes 0 % notest ab. Not Available [facility] ([facility]) [address] [facility], [place], [address], 03/29/2024 06:07:43 03/25/20 24 03/26/2024 CBC WITH DIFFE RENTI AL/PL ATELE T immature grans (abs) 0.0 x10e3 /uL 0.0-0. 1 Not Available [facility] ([facility]) [address] [facility], [place], [address], 03/29/2024 06:07:43 03/25/20 24 03/26/2024 RPR, RFX QN RPR/C ONFIR M TP RPR Non Reacti ve nonrea ctive Not Available [facility] ([facility]) [address] [facility], [place], [address], 03/29/2024 06:07:44 03/25/20 24 03/26/2024 VITAM IN D, 25-HY DROXY vitamin D, 25-hydroxy 28.0 NG/mL 30.0-1 00.0 below low normal Vitam in D defic iency has been defin ed by the Insti tute of Medic ine and an Endoc rine Socie ty pract ice guide line as a level of serum 25-OH vitam in D less than 20 ng/mL (1,2) . The Endoc rine Socie ty went on to furth er defin e vitam in D insuf ficie ncy as a level betwe en 21 and 29 ng/mL (2). 1. IOM (Inst itute of Medic ine). 2010. Dieta ry refer ence intak es for calci um and D. Armin gutierrez [place]: The [facility] [place] [facility] . 2. Esau concepcion [place], Kaur lopez [place], Hong off-F errar i LUX, et al. Evalu ation , treat ment, and preve ntion of vitam in D defic iency : an Endoc rine Socie ty clini be pract ice guide line. JCEM. 2010; 96(7) :1911 -30. Not Available [facility] ([facility]) [address] [place], [address], 03/29/2024 06:07:44 03/25/20 24 03/29/2024 CT/GC /TV TYLER+M YCOPL ASMAS URINE mycoplasma genitalium TYLER Negati ve negati ve Not Available [facility] ([facility]) [address] [place], [address], 03/30/2024 15:10:14 03/25/20 24 03/29/2024 CT/GC /TV TYLER+M YCOPL ASMAS URINE trich vag by TYLER Negati ve negati ve Not Available [facility] ([facility]) [address] [place], [address], 03/30/2024 15:10:14 03/25/20 24 03/29/2024 CT/GC /TV TYLER+M YCOPL ASMAS URINE chlamydia trachomatis, TYLER Negati ve negati ve Not Available [facility] ([facility]) [address] [place], [address], 03/30/2024 15:10:14 03/25/20 24 03/29/2024 CT/GC /TV TYLER+M YCOPL ASMAS URINE neisseria gonorrhoeae, TYLER Negati ve negati ve Not Available [facility] ([facility]) [address] [facility], [place], [address], 03/30/2024 15:10:14 03/25/20 24 03/30/2024 CT/GC /TV TYLER+M YCOPL ASMAS URINE mycoplasma hominis TYLER Negati ve negati ve Not Available [facility] ([facility]) [address] [facility], [place], [address], 03/30/2024 15:10:14 03/25/20 24 03/30/2024 CT/GC /TV TYLER+M YCOPL ASMAS URINE ureaplasma spp TYLER Negati ve negati ve Not Available [facility] ([facility]) [address] [facility], [place], [address], 03/30/2024 15:10:14 09/27/20 24 09/28/2024 INTER PRETA TION: interpretati on: Commen t Not infec madelin with HCV unles s early or acute infec tion is suspe cted (whic h may be delay ed in an immun ocomp romis ed indiv idual ), or other evide nce exist s to indic ate HCV infec tion. Not Available [facility] ([facility]) [address] [facility], [place], [address], 09/29/2024 06:20:42 09/27/20 24 09/28/2024 HCV ANTIB YARA RFX TO QUANT PCR HCV Ab NON REACTI VE nonrea ctive Not Available [facility] ([facility]) [address] [facility], [place], [address], 09/29/2024 06:20:42 09/27/20 24 09/29/2024 CT, NG, TRICH VAG BY TYLER chlamydia by TYLER NEGATI VE negati ve Not Available [facility] ([facility]) [address] [place], [address], 09/29/2024 06:20:44 09/27/20 09/29/2024 CT, NG, TRICH VAG BY TYLER gonococcus by TYLER NEGATI VE negati ve Not Available [facility] ([facility]) [address] [place], [address], 09/29/2024 06:20:44 09/27/20 24 09/29/2024 CT, NG, TRICH VAG BY TYLER trich vag by TYLER NEGATI VE negati ve Not Available [facility] ([facility]) [address] [place], [address], 09/29/2024 06:20:44 09/27/2009/28/2024 CT/GC TYLER, PHARY NGEAL C. trachomatis, TYLER, pharyn NEGATI VE negati ve Not Available [facility] ([facility]) [address] [place], [address], 09/29/2024 06:20:45 09/27/20 24 09/28/2024 CT/GC TYLER, PHARY NGEAL N. gonorrhoeae, TYLER, pharyn NEGATI VE negati ve Not Available [facility] ([facility]) [address] [place], [address], 09/29/2024 06:20:45 09/27/20 24 09/28/2024 MICRO SCOPI C EXAMI NATIO N WBC None seen /hpf 0-5 Not Available [facility] ([facility]) [address] [place], [address], 09/29/2024 06:20:46 09/27/20 24 09/28/2024 MICRO SCOPI C EXAMI NATIO N RBC 0-2 /hpf 0-2 Not Available [facility] ([facility]) [address] [place], [address], 09/29/2024 06:20:46 09/27/20 24 09/28/2024 MICRO SCOPI C EXAMI NATIO N epithelial cells (non renal) None seen /hpf 0-10 Not Available [facility] ([facility]) [address], [place], [address], 09/29/2024 06:20:46 09/27/20 24 09/28/2024 MICRO SCOPI C EXAMI NATIO N casts None seen /lpf nonese en Not Available [facility] ([facility]) [address], [place], [address], 09/29/2024 06:20:46 09/27/20 24 09/28/2024 MICRO SCOPI C EXAMI NATIO N bacteria None seen nonese en/few Not Available [facility] ([facility]) [address], [place], [address], 09/29/2024 06:20:46 09/27/20 24 09/28/2024 UA/M W/RFL X CULTU RE, ROUTI NE specific gravity >=1.03 0 1.005- 1.030 abnormal Not Available [facility] ([facility]) [address], [place], [address], 09/29/2024 06:20:46 09/27/20 24 09/28/2024 UA/M W/RFL X CULTU RE, ROUTI NE pH 6.5 5.0-7. 5 Not Available [facility] ([facility]) [address] [place], [address], 09/29/2024 06:20:46 09/27/20 24 09/28/2024 UA/M W/RFL X CULTU RE, ROUTI NE urine-color YELLOW yellow Not Available [facility]) [address] [place], [address], 09/29/2024 06:20:46 09/27/20 24 09/28/2024 UA/M W/RFL X CULTU RE, ROUTI NE appearance CLEAR clear Not Available [facility] ([facility]) [address] [facility], [place], [address], 09/29/2024 06:20:46 09/27/20 24 09/28/2024 UA/M W/RFL X CULTU RE, ROUTI NE WBC esterase NEGATI VE negati ve Not Available [facility] ([facility]) [address] [facility], [place], [address], 09/29/2024 06:20:46 09/27/20 24 09/28/2024 UA/M W/RFL X CULTU RE, ROUTI NE protein TRACE negati ve/tra ce Not Available [facility] ([facility]) [address] [facility], [place], [address], 09/29/2024 06:20:46 09/27/20 24 09/28/2024 UA/M W/RFL X CULTU RE, ROUTI NE glucose NEGATI VE negati ve Not Available [facility] ([facility]) [address] [facility], [place], [address], 09/29/2024 06:20:46 09/27/20 24 09/28/2024 UA/M W/RFL X CULTU RE, ROUTI NE ketones NEGATI VE negati ve Not Available [facility] ([facility]) [address] [facility], [place], [address], 09/29/2024 06:20:46 09/27/20 24 09/28/2024 UA/M W/RFL X CULTU RE, ROUTI NE occult blood NEGATI VE negati ve Not Available [facility] ([facility]) [address] [facility], [place], [address], 09/29/2024 06:20:46 09/27/20 24 09/28/2024 UA/M W/RFL X CULTU RE, ROUTI NE bilirubin NEGATI VE negati ve Not Available [facility] ([facility]) [address] [facility], [place], [address], 09/29/2024 06:20:46 09/27/20 24 09/28/2024 UA/M W/RFL X CULTU RE, ROUTI NE urobilinogen ,semi-qn 1.0 mg/dL 0.2-1. 0 Not Available [facility] ([facility]) [address] [facility], [place], [address], 09/29/2024 06:20:46 09/27/20 24 09/28/2024 UA/M W/RFL X CULTU RE, ROUTI NE nitrite, urine NEGATI VE negati ve Not Available [facility] ([facility]) [address] [facility], [place], [address], 09/29/2024 06:20:46 09/27/20 24 09/28/2024 UA/M W/RFL X CULTU RE, ROUTI NE microscopic examination COMMEN T Micro scopi c follo ws if indic ated. Not Available [facility] ([facility]) [address] [facility], [place], [address], 09/29/2024 06:20:46 09/27/20 24 09/28/2024 UA/M W/RFL X CULTU RE, ROUTI NE microscopic examination SEE BELOW: Micro scopi c was indic ated and was perfo rmed. Not Available [facility] ([facility]) [address] [facility], [place], [address], 09/29/2024 06:20:46 09/27/20 24 09/28/2024 UA/M W/RFL X CULTU RE, ROUTI NE urinalysis reflex COMMEN T This speci men will not refle x to a Urine Cultu re. Not Available [facility] ([facility]) [address] [place], [address], 09/29/2024 06:20:46 09/27/20 24 09/28/2024 HBSAG SCREE N HBsAg screen NEGATI VE negati ve Not Available [facility] ([facility]) [address] [place], [address], 09/29/2024 06:20:47 09/27/20 24 09/28/2024 RPR, RFX QN RPR/C ONFIR M TP RPR NON REACTI VE nonrea ctive Not Available [facility] ([facility]) [address] [place], [address], 09/29/2024 06:20:49 09/27/20 24 09/28/2024 HIV AB/P2 4 AG WITH REFLE X HIV Ab/P24 Ag screen NON REACTI VE nonrea ctive HIV-1 /HIV- 2 antib odies and HIV-1 p24 antig en were NOT detec madelin. There is no labor atory evide nce of HIV infec tion. HIV Negat ame Not Available [facility] ([facility]) [address] [facility], [place], [address], 09/29/2024 06:20:50 04/08/20 24 03/25/2024 XR, elbow , 3 or more view No observ ation record ed. [facility] [place] [address] [place], [address], 04/12/2024 15:02:28 Result Notes None recorded. 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 Medical Equipment None Reported. Allergies Allergen ID Allergen Name Allergen Category Reaction Reaction Severity Criticality Documentation Date Start Date Code Code System Note Provider Name and Address Organization Details Recorded Time 236064 clindamyc in Not available hives severe high 03/25/2024 2582 RxNorm Not Available Not Available Not Available 448634 Product containin g penicilli n (product) medicatio n hives severe high 03/25/2024 49492 8001 SNOMED Not Available Not Available Not Available Medications Name Sig Start Date Stop Date Status Note LastModified by Organization Details LastModified Time metronidazole 500 mg tablet TAKE 4 TABLETS BY MOUTH ALL AT THE SAME TIME FOR 1 DOSE active Not Available Not Available No t Available meloxicam 7.5 mg tablet Take 1 tablet every day by oral route for 30 days. 2023 active pt states he is no longer using Not Available Not Available Not Available Vitals Date Recorded Body height Body mass index (BMI) Body weight Oxygen saturation Oxygen saturation in Arterial blood by Pulse oximetry Pain severity - 0-10 verbal numeric rating [Score] - Reported Heart rate Respiratory rate Body temperature Systolic blood pressure Diastolic blood pressure Provider Name and Address Organization Details Last Updated DateTime 4 170.18 cm 27.8 kg/m2 74204.9 5 g 99 % 99 % 6 70 /min 18 /min 96.9 [degF] 126 mm[Hg] 80 mm[Hg] Ila Moya LPN [facility] 4 16:30:54 Date Recorded Body height Body mass index (BMI) Body weight Body temperature Respiratory rate Heart rate Systolic blood pressure Diastolic blood pressure Provider Name and Address Organization Details Last Updated DateTime 4 170.18 cm 26.2 kg/m2 24377.0 3 g 97.7 [degF] 16 /min 101 /min 132 mm[Hg] 87 mm[Hg] Veronica Dumont MA [facility] 4 15:06:24 Social History Question Answer Notes LastModified by Organizat ion Details LastModified Time Tobacco Smoking Status Never Smoker Ila Moya LPN [facility], [facility] 03/25/2024 16:34:05 Do You Have An Advance Directive? Yes Information n ot available 03/25/2024 What Is Your Level Of Alcohol Consumption? Occasional Information not available 03/25/2024 Are You Blind Or Do You Have Difficulty Seeing? No Information n ot available 03/25/2024 What Is Your Level Of Caffeine Consumption? Heavy Information not available 03/25/2024 In The 14 Days Before Symptom Onset, Have You Had Close Contact With A Laboratory-confirm ed COVID-19 While That Case Was Ill? No Information n ot available 03/25/2024 In The 14 Days Before Symptom Onset, Have You Had Close Contact With A Person Who Is Under Investigation For COVID-19 While That Person Was Ill? No Information not available 03/25/2024 Have You Been To An Area Known To Be High Risk For COVID-19? No Information not available 03/25/2024 Are You Currently Employed? Yes Information not available 03/25/2024 Are You Deaf Or Do You Have Serious Difficulty Hearing? No Information not available 03/25/2024 What Type Of Diet Are You Following? SPECIFIC Information n ot available 03/25/2024 Are There Any Guns Present In Your Home? No Information not available 03/25/2024 What Was The Date Of Your Most Recent Tobacco Screening? 09/27/2024 etodaroma Information not available 09/27/2024 How Many Children Do You Have? 5 Information not available 03/25/2024 Do You Use Protection During Sex? Always Information not available 03/25/2024 What Is Your Relationship Status? Single Information not available 03/25/2024 Do You Use Your Seat Belt Or Car Seat Routinely? Yes Information not available 03/25/2024 Are You Sexually Active? Yes Information not available 03/25/2024 Do You Have Smoke And Carbon Monoxide Detectors In Your Home? Yes Information not available 03/25/2024 Are You Passively Exposed To Smoke? No Information no t available 03/25/2024 Do You Feel Stressed (tense, Restless, Nervous, Or Anxious, Or Unable To Sleep At Night)? [id number] Information not available 03/25/2024 Do You Use Any Illicit Or Recreational Drugs? Yes Information not available 03/25/2024 Do You Use Sunscreen Routinely? No Information not available 03/25/2024 Has Tobacco Cessation Counseling Been Provided? No Information not available 03/25/2024 Do You Or Have You Ever Used Any Other Forms Of Tobacco Or Nicotine? No Information not available 03/25/2024 Sex: Male Functional Status Question Answer Note LastModified by Organization D etails LastModified Time Are you able to care for yourself? Yes Information n ot available 03/25/2024 What is your exercise level? Heavy Information not available 03/25/2024 Mental Status None recorded. Family History Relationship Description Onset Age of this Age Resolved Age Notes LastModified by Organization Details LastModified Time Father Diabetes mellitus [email or web address] Not available 03/25 16:33:08 Notes:09/27/24 Medical History Condition Response Coronary Artery Disease N Other N High Blood Pressure N Atrial Fibrillation N Thyroid Problems N Kidney or Bladder Problems N GI Problems N Depression N COPD N Blood Clots N Skin Problems N Eating Disorder N Anemia N Heart Attack ([place]) N Anxiety Disorder N Diabetes N Muscle, Joint, or Bone Problems N Arthritis N Seizures/Epilepsy N Acid Reflux (GERD) N Cancer N Stroke N Asthma N Allergies N ADHD N Substance Abuse N High Cholesterol N Hepatitis N Liver Disease N Schizophrenia N Headaches N Heart Failure N Osteoporosis N Past Encounters Encounter ID Performer Location Encounter Start Date Encounter Closed Date Diagnosis/Indication Diagnosis SNOMED-CT Code Diagnosis ICD10 Code Diagnosis Note [id number] FATEMEH DELGADOP-BC [place] [address] [facility] [address] [place] [address] [place] [address] 03/25/2024 15:57:41 04/15/2024 08:19:48 Pain of left elbow joint [id number] M25.522 -Patient reports pain with flexion of left elbow joint. Patient reports pain to inner epicondyle . Patient reports pain with palpation of left elbow joint. -Patient presentati on concerning for 'golfer's elbow' or medial epicondyli tis.-Patie nt agreeable to x rays of left elbow.-Pat ient agreeable to treatment with meloxicam 7.5mg daily PRN pain-Patie nt declined PT at this time.-HOURLY ASSOCIATE recommende d rest, ice/heat, and NSAID therapy for acute treatment. HOURLY ASSOCIATE provided care exercises/ instructio ns.-Patien t to return to clinic if pain worsens or does not improve. Adult heal th examination [id number] Z00.00 The patient was counseled regarding the appropriat e use ofalcohol, screening procedures and recommende d schedule for colonoscop y, psa, cholestero l, thyroid and diabetes screening, prevention of dental and periodonta l disease, diet, regular sustained exercise for at least 30 minutes 3-4 times per week, prostate cancer screening, regular use of seat belts.Jose Alejandro mmend dilated eye exam and glaucoma screening every 2 years or as indicated by ophthalmol [facility] Maintenanc e:- CRC screening (45-75):Du e at 45 years.- Osteoporos is screening: Due at 65.- Lipid screening (>45 unless additional risk factors): ordered- HIV : declined 03/25/24- HepC: declined 03/25/24-Eye exam: unknown-De ntal Exam: unknown- Immunizati ons:- Influenza: Due fall.- Prevnar 20: Due at 65.- Tdap/Td ([id number]) : unknown- Zoster (>60):Due at 60.- COVID-19: Declined 03/25/24- AAA screening (65-75): Due at 65.- Prostate ca screening (>50 or >45 if AA, +FH; d/w patient): Due at 50.-Labs ordered this visit: CMP, CBC, TSH, T4, vitamin D, vitamin B12, STD screening, syphillis testing Body mass index 25-29 - overweight 684033272 Z68.27 HOURLY ASSOCIATE advised patient to follow a well balanced diet and obtain regular exercise. Informatio nal handout provided. Venereal d isease screening 368991612 Z11.3 -Patient agreeable to STD testing.-N P discussed importance of safe sex practices including condom use to prevent STDs and unplanned and to limit number of sexual partners to reduce exposure to STDs.-HOURLY ASSOCIATE provided safer sex care instructio ns. Marijuana user 521434365 F12.90 Patient reports he smokes marijuana on occasion. Patient reports smoking every couple of weeks 1-2 joints. [id number] MD Alex Moreno 14 [address] [facility] [place] [address] 09/27/2024 14:44:17 10/01/2024 16:10:37 Venereal disease screening 735480854 Z11.3 Dysuria 53583664 R30.0 Will check for UTI with UA with reflex. Exposure t o genital trichomoniasis 867668968 Z20.2 Discussed abstaining from alcohol due to adverse affects of metronidaz ole and abstaining from sexual intercours e for 7 days while being treated. Health Concerns Section Related Observation LastModified by Organization Detai ls LastModified Time None Recorded Concern Status LastModified by Organization Details LastModified Time None Recorded Advance Directives Directive Y: Payers Encounter Date Sequence Insurance Name Policy Number Policy Barroso Covered Member ID Barroso Member ID Guarantor Name 03/25/2024 1 [employer] - CHOICE (POS II) [id number] Alex Whipple Finazzo II [id number] Alex Finazzo 09/27/2024 1 [employer] - CHOICE ([place] II) [id number] Alex Whipple Finazzo II [id number] Alex Cee Notes Date Note Type Note Provider Name and Address Organization Details Recorded Time 03/25/2024 text/html Patient presents to the clinic to establish care. Patient was previously established with Dr. Coy Suarez in [facility] specialist. -Medical Hx/Surgical Hx: ulnar shortening procedure in left arm. -Family hx:Mother: living-healthyFather : living-DMIIMaternal Grandmother: -unknownMate rnal Grandfather: -unknownPate rnal Grandmother: -old agePaternal Grandfather: -[place] -Tobacco/Drug/Alcoho l Use:Patient reports he smokes marijuana on occasion. 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 Patient tries to limit junk food. He has one soda per day. Allergies: clindamycin, penicillins Acute ConcernsLeft Arm-Patient reports his left arm started hurting 6 weeks ago after he was doing pull ups.-Patient reports he rested it for 1 week and did pull ups again and now has been hurting for 4 more weeks. He was also trying to do 1000push ups per day. Reports the pain improves for a while and then it improves.-Patient reports he has not taken anything for pain. SHEEBA DELGADO Attn: [address] [place], [address], [facility] 04/12/2024 10:50:44 09/27/2024 text/html Alex is a 44 yo M presenting for STI screening. He states his girlfriend tested positive for trich, BV and a UTI. Patient is also having dysuria sometimes and right lower back pain. Denies fever, discharge, sore throat, abdominal pain. Masoud Waldron MD Attn: [address] [place], [address], [facility] 10/01/2024 14:23:25
--- NOTE | 2025-02-02 19:01 | ED.URI ---
HPI - URI/Sore Throat General Chief Complaint: Fever Stated Complaint: FEVER, BODY ACHES Time Seen by Provider: 02/02/25 19:00 Source: patient Mode of arrival: ambulatory Limitations: no limitations History of Present Illness HPI Narrative: 45-year-old male with a history of prior substance abuse presents to the ED with a 2 day history of -- fever with a T-max of 102.5? -- body ache -- nasal congestion MD elicited complaint: fever, cough and nasal congestion Onset (ago): day(s) ( 2 days) Consistency: constant Severity: moderate Able to tolerate fluids by mouth: Yes Exacerbating factors: nothing Relieving factors: nothing Associated symptoms: fever, chills, nasal congestion and cough Treatments prior to arrival: none Related Data Allergies Allergy/AdvReac Type Severity Reaction Status Date / Time Penicillins Allergy Intermediate RASH Verified 11/12/22 14:49 clindamycin Allergy Mild RASH Verified 11/12/22 14:49 Review of Systems Review of Systems: All systems reviewed & are unremarkable except as noted in HPI and below Constitutional: Constitutional: Reports as per HPI and Reports no additional constitutional complaints Eyes: Eyes: Reports as per HPI and Reports no additional eye complaints ENT: Reports system reviewed and no additional complaints, except as documented and Reports as per HPI Cardiovascular: Cardiovascular: Reports as per HPI and Reports no additional cardiovascular complaints Respiratory: Respiratory: Reports as per HPI, Reports no additional respiratory complaints and Reports cough Gastrointestinal: Gastrointestinal: Reports as per HPI and Reports no additional gastrointestinal complaints Genitourinary: Genitourinary: Reports no additional male genitourinary complaints Musculoskeletal: Musculoskeletal: Reports myalgias Integumentary/Breasts: Skin/Breast: Reports system reviewed and no additional complaints, except as docu and Reports as per HPI Neurologic: Reports system reviewed and no additional complaints, except as documented and Reports as per HPI Psychiatric: Psychiatric: Reports no additional psychiatric complaints and Reports as per HPI Endocrine: Endocrine: Reports no additional endocrine complaints and Reports as per HPI Hematologic/Lymphatic: Hematologic/Lymphatic: Reports no additional hematologic/lymphatic complaints and Reports as per HPI Allergic/Immunologic: Allergic/Immunologic: Reports no additional allergic/immunologic complaints and Reports as per HPI [facility] Surgical History Surgical History Hx of decompression of ulnar nerve Social History Social History Smoking status: Never smoker Alcohol intake: current Substance use: current Substance use type: marijuana and methamphetamine Gender identity (if verbalized by the patient): Male Exam Narrative: temperature 38.1? Const: General: no acute distress Orientation/consciousness: patient oriented x3 Limitations: no limitations HENMT: Head: normal to inspection Ears: external ears normal Face/Nose/Sinus: Normal external nose present Face and sinus: normal facial exam Mouth: Yes Normal oral and palatal mucosa present Throat: posterior oropharynx normal Eyes: Conjunctivae: conjunctivae normal Pupils: Equal, round and reactive pupils present EOM: EOMs intact bilaterally Direct Ophthalmoscopy: no photophobia Neck: Neck: normal visual inspection, no lymphadenopathy and no meningeal signs Chest: Chest palpation & inspection: normal inspection of the chest Resp: Effort & Inspection: normal respiratory effort Auscultation: clear to auscultation bilaterally Cardio: Rate: regular rate Rhythm: regular rhythm GI: GI Palp: Yes Soft to palpation Other: no tenderness/rigidity /rebound : General: Yes no CVA tenderness Back/Spine/Pelvis: Back: no CVA tenderness Skin: General skin exam: normal color Rashes: no rashes Wounds: no wounds Neuro: General: patient oriented x3, moves all extremities, no meningeal signs, no focal motor deficits and CN's II-XI intact bilaterally Cranial nerves: Yes Nystagmus not present Speech: normal speech Gait exam (Neuro): Normal gait present Extrem: General: normal to inspection and no clubbing, cyanosis or edema Psych: Mental Status: mental status grossly normal Affect: normal affect Course Course Emergency Course: upper respiratory tract infection-- influenza a Vital Signs Vital signs: Vital Signs Temperature 38.1 C H 02/02/25 18:53 Pulse Rate 92 02/02/25 18:53 Respiratory Rate 18 02/02/25 18:53 Blood Pressure 132/79 02/02/25 18:53 Pulse Oximetry 96 02/02/25 18:53 Oxygen Delivery Room Air 02/02/25 18:53 Temperature 38.1 C H 02/02/25 18:53 Pulse Rate 92 02/02/25 18:53 Respiratory Rate 18 02/02/25 18:53 Blood Pressure 132/79 02/02/25 18:53 Pulse Oximetry 96 02/02/25 18:53 Oxygen Delivery Room Air 02/02/25 18:53 MDM - URI/Sore Throat MDM Narrative Medical decision making narrative: influenza a CKD Differential Diagnosis Differential diagnosis: Likely upper respiratory infection and viral infection Lab Data Attestation: I reviewed the patient's lab results. 02/02/25 19:29 02/02/25 19:29 Labs: Lab Results 02/02/25 02/02/25 Range/Units 19:29 19:34 WBC 5.4 (4.8-10.8) K/mm3 RBC 5.03 (4.70-6.10) M/mm3 Hgb 14.8 (14.0-18.0) g/dL Hct 44.5 (40.0-54.0) % MCV 88.5 (78.0-102.0) fL MCH 29.4 (27.0-31.0) pg MCHC 33.3 (32-36) g/dL RDW 12.9 (11.6-14.4) % Plt Count 198 (150-420) K/mm3 MPV 8.5 L (8.7-11.0) fl Immature Gran % (Auto) Not Reportable Neut % (Auto) Not Reportable Lymph % (Auto) Not Reportable [place] % (Auto) Not Reportable Eos % (Auto) Not Reportable Baso % (Auto) Not Reportable Lymph # (Auto) Not Reportable [place] # (Auto) Not Reportable Eos # (Auto) Not Reportable Baso # (Auto) Not Reportable Abs Immat Gran (auto) Not Reportable Absolute Neuts (auto) Not Reportable Absolute Nucleated RBC Not Reportable Total Counted 100 Neutrophils % (Manual) 74 H (46-73) % Band Neutrophils % 0 (0-6) % Lymphocytes % (Manual) 14 L (18-44) % Monocytes % (Manual) 12 H (3-9) % Eosinophils % (Manual) 0 L (1-6) % Basophils % (Manual) 0 (0-1) % Nucleated RBC % Not Reportable Abs Neuts (Manual) 3.99 (1.3-6.7) K/mm3 Abs Lymphs (Manual) 0.75 L (1.1-4.5) K/mm3 Abs Monocytes (Manual) 0.64 (0.1-0.90) K/mm3 Absolute Eos (Manual) 0.00 L (0.02-0.50) K/mm3 Abs Basophils (Manual) 0.00 (0-0.1) K/mm3 Platelet Estimate Adequate (Adequate) Schistocytes Not Reportable Sodium 141 (136-145) mmol/L Potassium 3.8 (3.5-5.1) mmol/L Chloride 106 (98-108) mmol/L Carbon Dioxide 27 (21-32) mmol/L Anion Gap 8 (4-12) mmol/L BUN 19 H (7-18) mg/dL Creatinine 1.56 H (0.70-1.30) mg/dL Estim Creat Clear Calc 51 ml/min Estimated GFR 49 L (59 - ) Glucose 104 H (70-99) mg/dL Calculated Osmolality 294 (285-295) mOsm/kg Lactic Acid 1.3 (0.4-2.0) mmol/L Calcium 8.5 (8.5-10.1) mg/dL Total Bilirubin 0.5 (0.00-1.00) mg/dL AST 23 (15-37) U/L ALT 40 (16-63) U/L Alkaline Phosphatase 81 (46-116) U/L Total Protein 6.9 (6.4-8.2) g/dL Albumin 3.7 (3.4-5.0) g/dL Lipase 32 (16-77) U/L Urine Color Yellow (Yellow) Urine Appearance Cloudy A (Clear) Urine pH 7.0 (5.0-8.0) Ur Specific [place] 1.020 (1.010-1.020) Urine Protein Trace H (Negative) Urine Glucose (UA) Negative (Negative) Urine Ketones Negative (Negative) Ur Blood (Man) Negative (Negative) Urine Nitrate Negative (Negative) Urine Bilirubin Negative (Negative) Urine Urobilinogen 2.0 H (0.2-1.0) mg/dL Leukocyte Esterase Rfl Negative (Negative) VAN/UL Urine RBC 0-2 (0-2) /hpf Urine WBC 0-3 (0-3) /hpf Amorphous Sediment Heavy H (None) Urine Bacteria 1+ H (None) /hpf Influenza A (RT-PCR) Positive A (Negative) Influenza B (RT-PCR) Negative (Negative) RSV (RT-PCR) Negative (Negative) SARS-CoV-2 RNA (RT-PCR) Negative (Negative) Discharge Plan Discharge Clinical Impression: Acute renal insufficiency, Influenza A Patient Disposition: Home, Self-Care Condition: Stable Instructions: Antibiotic Form, Chronic Kidney Disease Diet (DC), Influenza (ED) Patient Language: Slovenian Prescriptions: No Action nystatin 100,000 unit/gram cream 1 applic topical QID 10 Days Qty: 30 0RF sulfamethoxazole-trimethoprim [Bactrim DS] 800-160 mg tablet 1 tablet PO Q12H Qty: 10 0RF sulfamethoxazole-trimethoprim [Bactrim DS] 800-160 mg tablet 1 tablet PO Q12H 5 Days Qty: 10 0RF Follow-up/Referrals: Renetta Jara RN [Primary Care Provider] - Time of Disposition: 20:16
--- NOTE | 2025-02-02 19:29 | PC.NURSE ---
LAB COMPLETED BLOOD DRAW. PATIENT AMBULATED TO THE BATHROOM TO GIVE URINE SAMPLE.
[2025-02-02 19:32] LABS: Hematocrit 44.5 % (40.0-54.0); Hemoglobin 14.8 g/dL (14.0-18.0); Mean Corpuscular HGB Conc 33.3 g/dL (32-36); Mean Corpuscular Hemoglobin 29.4 pg (27.0-31.0); Mean Corpuscular Volume 88.5 fL (78.0-102.0); Mean Platelet Volume 8.5 fl (8.7-11.0); Platelet Count Result 198 K/mm3 (150-420); Red Blood Count 5.03 M/mm3 (4.70-6.10); Red Cell Distribution Width 12.9 % (11.6-14.4); White Blood Count 5.4 K/mm3 (4.8-10.8)
--- NOTE | 2025-02-02 19:32 | PC.NURSE ---
URINE TAKEN DOWN TO LAB BY KARLI ARTHUR
[2025-02-02 19:37] LABS: Add Urine Microscopic? YES; Appearance Urine Cloudy (Clear); Bilirubin Urine Negative (Negative); Blood Urine Negative (Negative); Color Urine Yellow (Yellow); Glucose Urine UA Negative (Negative); Ketones Urine Negative (Negative); Leukocyte Esterase Ur Negative LEU/UL (Negative); Nitrate Urine Negative (Negative); Protein Urine Trace (Negative)
--- OUTSIDE RECORDS SUMMARY | 2025-02-02 19:40 | XMS_ITS | Continuity of Care Document ---
Author Organization [facility] Address [address] [place] [address] [address] [place] [address] Phone Care Team Providers Care Coldfusion Name Role Phone Radames COOL, OTR/L, Jorden VARGAS Unavailable Micaela vailable Procedures Procedure Date ORTHOTIC FITTING OT EVALUATION THERAPEUTIC EXERCISES ORTHOTIC FITTING Non-compressive stockinette per foot Jan Static Clamshell Splint Advance Directives Directive Yes / No Effective Date File Name No Information Encounters Encounter Description Practice Location Reason(s) For Visit Diagnoses Date Provider Providers Copied on Encounter [facility], [address] [address], [place], [place], [id number], tel:[phone] [place] No Information 6 Radames Leonardo. [address] [facility], [facility] [address], [place], [facility], . tel:[phone] Referring Provider: Leif Mansfield, [address] [facility] [address], [place], [address]. tel:[phone] [facility], [address] [address], [place], [place], [id number], tel:[phone] [place] Pain in left handOther specified soft tissue disordersMuscle weakness (generalized)Uns pecified sprain of left wrist, initial encounterOther specified joint disorders, left wrist 6 Radames Leonardo. [address] [facility], [facility] [address], [place], [place], [facility], . tel:[phone] Referring Provider: Lionel Hirsch, [address] [facility] [address], [place], [address]. tel:[phone] Family History Family Member Type Diagnosis Age At Onset No Information Payers Payer name Insurance type Covered republican ID Authoriza tion(s) No Information Social History [...]
[2025-02-02 19:41] LABS: Amorphous Sediment Urine Heavy; Bacteria Urine 1+ /hpf; RBC Urine 0-2 /hpf (0-2); WBC Urine 0-3 /hpf (0-3)
[2025-02-02 19:52] LABS: Alanine Aminotransferase 40 U/L (16-63); Albumin Level 3.7 g/dL (3.4-5.0); Alkaline Phosphatase 81 U/L (46-116); Anion Gap 8 mmol/L (4-12); Aspartate Amino Transferase 23 U/L (15-37); Bilirubin,Total 0.5 mg/dL (0.00-1.00); Blood Urea Nitrogen 19 mg/dL (7-18); Calcium 8.5 mg/dL (8.5-10.1); Carbon Dioxide 27 mmol/L (21-32); Chloride 106 mmol/L (98-108); Estimated CRCL calculation 51 ml/min; Estimated Glomerular Filt Rate 49; Glucose 104 mg/dL (70-99); Lipase 32 U/L (16-77); Osmolality Calculated 294 mOsm/kg (285-295); Potassium 3.8 mmol/L (3.5-5.1); Sodium 141 mmol/L (136-145); Total Protein 6.9 g/dL (6.4-8.2)
[2025-02-02 19:54] LABS: Band Neutrophils Percent 0 % (0-6); Basophils Percent Manual 0 % (0-1); Eosinophils Percent Manual 0 % (1-6); Lymphocytes Absolute Manual 0.75 K/mm3 (1.1-4.5); Lymphocytes Percent Manual 14 % (18-44); Monocytes Absolute Manual 0.64 K/mm3 (0.1-0.90); Monocytes Percent Manual 12 % (3-9); Neutrophils Absolute Manual 3.99 K/mm3 (1.3-6.7); Neutrophils Percent Manual 74 % (46-73); Platelet Estimate Adequate (Adequate); Total Cells Counted 100
[2025-02-02 19:57] LABS: Lactic Acid Reflex 1.3 mmol/L (0.4-2.0)
[2025-02-02 20:08] LABS: Influenza A QL RT-PCR Positive (Negative); Influenza B QL RT-PCR Negative (Negative); RSV RNA, RT-PCR Negative (Negative); SARS-CoV-2 RNA PCR Negative (Negative)
--- NOTE | 2025-02-02 20:15 | PC.NURSE ---
PATIENT IS RESTING ON STRETCHER. VISITOR AT THE BEDSIDE.
[2025-02-02 20:34] VITALS: BP 107/69; PULSE 94; RESP 18; TEMP 37.9; O2SAT 96
== END 2025-02-02 20:34 | disposition home or self-care (01) ==
PROVIDERS: Emergency Provider Internal Medicine Critical Care Medicine
DX: J10.1 Influenza due to other identified influenza virus with other respiratory manifestations (principal); N28.9 Disorder of kidney and ureter, unspecified; Z20.822 Contact with and (suspected) exposure to COVID-19
CPT/HCPCS: 36415; 80053; 81001; 83605; 83690; 85025; 87637; 99283

== ENCOUNTER 2025-07-21 07:32 | Emergency (ER) | payer OTHER, SELFPAY ==
--- NOTE | ~2025-07-21 | CT_ITS ---
EXAMINATION: CT cervical spine wo con DATE: 07/21/2025 07:55 INDICATION: Left neck pain. Tenderness left lateral C7. TECHNIQUE: Computed tomography (CT) of the cervical spine was performed without intravenous contrast. The dose-length product was 440 mGy-cm. COMPARISON: CT dated 09/06/2020 FINDINGS: There is reversal of cervical lordosis. There is degenerative retrolisthesis at C5-6. There is disc narrowing at this level. There is degenerative anterolisthesis at C4-5. Craniovertebral junction is normal. Odontoid process is normal. There is mild multilevel uncinate hypertrophy, most advanced at C5-6. Lateral masses normally aligned. Lung apices are normal. No evidence for perched facet. Spinous processes are normal. No acute fracture or traumatic malalignment. No paraspinal soft tissue abnormality. IMPRESSION: 1. Progression of moderate cervical spondylosis most advanced at C5-6. Reviewed, dictated and finalized at location O.
[2025-07-21 07:35] VITALS: BP 135/89; PULSE 71; RESP 16; TEMP 36.4; O2SAT 100
--- NOTE | 2025-07-21 07:49 | ED.GENADULT ---
HPI - General Adult General Chief complaint: Neck Pain/Injury Stated complaint: neck pain Time Seen by Provider: 07/21/25 07:36 History of Present Illness HPI narrative: 45-year-old male present to the emergency department for evaluation for left-sided lateral neck pain. Patient reports approximately week ago he was pulling a large pin out of ground and injured his left neck. Patient states that he tried symptomatic treatments to see if this would help but states things have not improved over the course of the last week. Patient describes tenderness at the left lateral neck, denies any associated numbness or weakness. Related Data Allergies Allergy/AdvReac Type Severity Reaction Status Date / Time Penicillins Allergy Intermediate RASH Verified 07/21/25 07:37 clindamycin Allergy Mild RASH Verified 07/21/25 07:37 Review of Systems Review of Systems: All systems reviewed & are unremarkable except as noted in HPI and below PMFSH Surgical History Surgical History Hx of decompression of ulnar nerve Social History Social History Smoking status: Never smoker Alcohol intake: current Substance use: current Substance use type: marijuana and methamphetamine Gender identity (if verbalized by the patient): Male Exam Narrative: APPEARANCE: Well appearing, no pain, no distress, well-nourished. HEAD: normocephalic, atraumatic. EYES: PERRLA/EOMI, conjunctivae clear. NOSE: Normal no drainage EARS:TMS clear with good light reflex. THROAT: Pharynx clear, no exudate. NECK: Supple. No adenopathy, no masses. RESPIRATORY: Airway patent, respirations nonlabored. Clear to auscultation bilaterally, no rales, rhonchi, wheezing. CARDIOVASCULAR: Regular rate and rhythm without murmurs rubs or gallops. ABDOMINAL: Soft, nontender, nondistended, normal bowel sounds MUSCULOSKELETAL: Tenderness to left lateral cervical spine and C7 NEURO: Alert. Cranial nerves II through XII intact. Good gait. Good coordination SKIN: Warm, dry. Normal Color PSYCHIATRIC: Normal affect/mood. Course Vital Signs Vital signs: Vital Signs Temperature 97.6 F 07/21/25 07:35 Pulse Rate 71 07/21/25 07:35 Respiratory Rate 16 07/21/25 07:35 Blood Pressure 135/89 08/28/25 07:35 Pulse Oximetry 100 07/21/25 07:35 Oxygen Delivery Room Air 07/21/25 07:35 Temperature 97.6 F 07/21/25 07:35 Pulse Rate 71 07/21/25 07:35 Respiratory Rate 16 07/21/25 09:16 Blood Pressure 135/89 07/21/25 07:35 Pulse Oximetry 100 07/21/25 07:35 Oxygen Delivery Room Air 07/21/25 07:35 Medical Decision Making MDM Narrative Medical decision making narrative: 45 old male presents emergency department for evaluation for left shoulder and left lateral neck tenderness to palpation, CT scan was ordered to evaluate for fracture spinal injury including transverse process fractures. CT scan showed no significant acute abnormality. Patient was treated with medications for pain control emergency department. Patient will be discharged home in with a Medrol Dosepak, Flexeril and Josephine. Patient was updated the results of the workup patient was comfortable plan for discharge and close follow-up. Differential Diagnosis Differential Diagnosis: Cervical strain, trapezius strain, cervical radiculopathy, cervical fracture Vital Signs Vital Signs: Vital Signs Temperature 97.6 F 07/21/25 07:35 Pulse Rate 71 07/21/25 07:35 Respiratory Rate 16 07/21/25 07:35 Blood Pressure 135/89 07/21/25 07:35 Pulse Oximetry 100 07/21/25 07:35 Oxygen Delivery Room Air 07/21/25 07:35 Temperature 97.6 F 07/21/25 07:35 Pulse Rate 71 07/21/25 07:35 Respiratory Rate 16 07/21/25 09:16 Blood Pressure 135/89 07/21/25 07:35 Pulse Oximetry 100 07/21/25 07:35 Oxygen Delivery Room Air 07/21/25 07:35 Imaging Data Radiologist's impression: Impressions Cervical Spine CT 07/21/25 08:05 IMPRESSION: 1. Progression of moderate cervical spondylosis most advanced at C5-6. Discharge Plan Discharge Clinical Impression: Torticollis, Strain of cervical portion of left trapezius muscle Patient Disposition: Home Condition: Stable Instructions: Antibiotic Form, Cervical Strain (ED) Additional Instructions: Medrol Dosepak as directed until completed. Flexeril for muscle spasm. Ibuprofen as needed for pain control. Josephine as needed for additional pain control. Have close follow-up with your primary care physician. Patient Language: Spanish Prescriptions: New cyclobenzaprine 10 mg tablet 10 mg PO BID PRN (Reason: muscle spasm) Qty: 14 0RF hydrocodone-acetaminophen 5-325 mg tablet 1 tablet PO Q12H PRN (Reason: pain) Qty: 14 0RF methylprednisolone [Medrol (Ricardo)] 4 mg tablets,dose pack See Rx Instructions .ROUTE .COMPLEX Qty: 21 0RF Rx Instructions: for 6 days Follow-up/Referrals: Renetta Jara RN [Primary Care Provider, Nursing]
[2025-07-21] MEDS: HYDROcodone/acetaminophen (*CRX) 5-325 MG TABLET 1 TAB PO (08:01)
[2025-07-21] MEDS: KETOROLAC 30 MG/ML VIAL (*BKC) IM (08:01)
[2025-07-21] MEDS: CYCLOBENZAPRINE HCL 10 MG TABLET PO (08:01)
[2025-07-21 09:16] VITALS: RESP 16
== END 2025-07-21 09:19 | disposition home or self-care (01) ==
PROVIDERS: Emergency Provider Emergency Medicine
DX: S16.1XXA Strain of muscle, fascia and tendon at neck level, initial encounter (principal); S13.4XXA Sprain of ligaments of cervical spine, initial encounter; M47.812 Spondylosis without myelopathy or radiculopathy, cervical region; X50.0XXA Overexertion from strenuous movement or load, initial encounter
CPT/HCPCS: 72125; 96372; 99284; A9270; J1885